=== PATIENT | male | born 1985 | race Two or more races ===

== ENCOUNTER 2019-03-26 15:44 | Emergency (ER) | payer MEDICAID ==
[~2019-03-26] VITALS: Ht 175.3 cm; Wt 88.5 kg
--- NOTE | 2019-03-26 16:00 | NUR ---
ED Nurse Note: Pt walked into ED w/ c/o L knee pain 09/25. Pt states he twisted it going down the stairs 10 days ago. Pt ROM 3/5 LLE. Pt denies numbness/tingling, has pedal pulses 3+ bilaterally. Pt is alert and orientedx4, ambulatory.
--- NOTE | 2019-03-26 16:27 | Emergency Room Report ---
History of Present Illness General Chief Complaint: Lower Extremity Injury Source: Patient Present Illness HPI 33-year-old male presents to the emergency department complaining of 9 out of 10 severity pain to the anterior and lateral aspect of the left knee x10 days. Patient status post twisting his knee and falling down some stairs 10 days ago. Patient reports he is able to weight-bear however he has significant pain upon attempts to straighten his leg. Patient states he is unable to bear weight when his leg is straight. He states he is able to somewhat raise his leg before experiencing pain. He denies hitting his head or having a loss of consciousness. Denies midline neck or back pain. Denies numbness tingling or loss of sensation or gross motor movements of the extremities, incontinence of bowel or bladder. Denies CP, Palpitations, LOC, AMS, dizziness, Changes in Vision, weakness or a sudden severe headache. Allergies: Coded Allergies: No Known Allergies (Unverified , 03/26/19) Patient History Past Medical History: see triage record Past Surgical History: none Pertinent Family History: none Reviewed Nursing Documentation: PMH: Agreed; PSxH: Agreed Nursing Documentation-PMH Past Medical History: No Stated History Review of Systems All Other Systems: negative except mentioned in HPI Physical Exam Vital Signs Date Time Temp Pulse Resp B/P (MAP) Pulse Ox O2 Delivery O2 Flow Rate FiO2 03/26/19 15:50 98.8 98 19 123/77 (92) 96 Room Air Sp02 EP Interpretation: reviewed, normal General Appearance: no apparent distress, alert, GCS 15, non-toxic Head: normocephalic, atraumatic Eyes: bilateral eye normal inspection, bilateral eye PERRL ENT: hearing grossly normal, normal voice Neck: full range of motion Respiratory: lungs clear, normal breath sounds, speaking full sentences Cardiovascular #1: regular rate, rhythm, normal capillary refill Cardiovascular #2: 2+ dorsalis pedis (L) Musculoskeletal: normal range of motion, gait/station normal, tender - Anteriolateral aspect of the left knee, good of anterior and posterior drawer signs. No increased laxity on stress testing. Patient is able to passively extend his leg with some pain prior to the 140* angle, swelling - left knee, palpable effusion Neurologic: alert, motor strength/tone normal, oriented x3, sensory intact, responsive, speech normal Psychiatric: judgement/insight normal Medical Decision Making PA Attestation Dr. Ellis is my supervising Physician whom patient management has been discussed with. Diagnostic Impression: Primary Impression: Knee effusion, left Additional Impression: Left knee sprain Qualified Codes: S83.512A - Sprain of anterior cruciate ligament of left knee , initial encounter ER Course 33-year-old male presents to the emergency department complaining of 9 out of 10 severity pain to the anterior and lateral aspect of the left knee x10 days. Patient status post twisting his knee and falling down some stairs 10 days ago. Patient reports he is able to weight-bear however he has significant pain upon attempts to straighten his leg. Patient states he is unable to bear weight when his leg is straight. He states he is able to somewhat raise his leg before experiencing pain. He denies hitting his head or having a loss of consciousness. Denies midline neck or back pain. Denies numbness tingling or loss of sensation or gross motor movements of the extremities, incontinence of bowel or bladder. Denies CP, Palpitations, LOC, AMS, dizziness, Changes in Vision, weakness or a sudden severe headache. Ddx considered but are not limited to Fracture, dislocation, contusion, Sprain/ Strain/Spasm, meniscal injury or ligamental injury.. Vital signs: are WNL, pt. is afebrile H&PE are most consistent with musculoskeletal injury will perform imaging to r/ o fractures/dislocations. ORDERS: - X-ray Left Knee 3 views - negative for fx, Dislocation, or significant soft tissue injury, per preliminary read in ED, and signed by LIAM Lovelace , my supervising physician has reviewed, and agrees with my interpretation. ED INTERVENTIONS: --Knee Immobilizer splint applied to the Left Knee by cell phone repair technician. Pt. remains neurovascularly intact. --Patient is provided with crutches and instructed on their use DISCHARGE: At this time pt. is stable for d/c to home. Will provide printed patient care instructions, and any necessary prescriptions. Care plan and follow up instructions have been discussed with the patient prior to discharge. Other X-Ray Diagnostic Results Other X-Ray Diagnostic Results : X-Ray ordered: X-ray Left Knee 3 views # of Views/Limited Vs Complete: 3 View Indication: Pain EP Interpretation: Yes LIAM Xray: Interpretation reviewed, by supervising MD, and agrees with findings. Interpretation: no dislocation, no soft tissue swelling, no fractures Impression: No acute disease Electronically Signed by: Shireen Lovelace PA-C Last Vital Signs Date Time Temp Pulse Resp B/P (MAP) Pulse Ox O2 Delivery O2 Flow Rate FiO2 03/26/19 15:50 98.8 98 19 123/77 (92) 96 Room Air Status: improved Disposition: HOME, SELF-CARE Condition: Stable Scripts Ibuprofen* (MOTRIN*) 600 Mg Tablet 600 MG ORAL THREE TIMES A DAY, #30 TAB 0 Refills Prov: Shireen Lovelace 03/26/19 Patient Instructions: Combined Knee Ligament Sprain Additional Instructions: Take medications as directed. Follow up with an TAX COMPLIANCE REPRESENTATIVE in 3-5 days, even if your symptoms have resolved. If symptoms persist MRI may be required at the discretion of your PCP or Ortho Specialist. --Please review list of primary care clinics, if you do not already have a primary care provider who can give you an Orthopedic Referral. Return sooner to ED if new symptoms occur, or current symptoms become worse. - Please note that this Emergency Department Report was dictated using [employer] technology software, occasionally this can lead to erroneous entry secondary to interpretation by the dictation equipment. Shireen Lovelace Mar 26, 2019 16:27
[2019-03-26] MEDS ORDERED: IBUPROFEN600 MG ORAL (17:22)
--- NOTE | 2019-03-26 17:35 | NUR ---
ER DISCHARGE NOTE: Patient is cleared to be discharged per ERMD, pt is aox4, on room air, with stable vital signs. pt was given dc and prescription instructions, pt was able to verbalize understanding, pt id band removed. pt is able to ambulate with steady gait. pt took all belongings. Knee immobilizer applied, cructhes used.
[2019-03-26 17:36] VITALS: BP 119/70
--- NOTE | 2019-03-26 18:20 | Diagnostic Imaging Report ---
EXAM: XR Left Knee, 3 views CLINICAL HISTORY: PAIN TECHNIQUE: Three views of the left knee. COMPARISON: No relevant prior studies available. FINDINGS: Bones/joints: No acute fracture. Moderate to large effusion. Soft tissues: Soft tissue swelling. No radiodense foreign body. IMPRESSION: No acute fracture.
== END 2019-03-26 17:38 | disposition home or self-care (01) ==
LOC: EMR 16:49
DX: S83.512A Sprain of anterior cruciate ligament of left knee, initial encounter (principal); M25.462 Effusion, left knee; W10.9XXA Fall (on) (from) unspecified stairs and steps, initial encounter; Y92.9 Unspecified place or not applicable
CPT/HCPCS: 29505; 73562; Z7502; 99283